=== PATIENT | male | born 2000 | race Caucasian/White ===

== ENCOUNTER 2020-06-20 18:09 | Emergency (ER) | payer OTHER ==
[~2020-06-20] VITALS: Ht 177.8 cm; Wt 109.3 kg
== END 2020-06-20 20:23 | disposition home or self-care (01) ==
LOC: ER 18:09
DX: B34.9 Viral infection, unspecified (principal); B96.0 Mycoplasma pneumoniae [M. pneumoniae] as the cause of diseases classified elsewhere; Z03.818 Encounter for observation for suspected exposure to other biological agents ruled out